=== PATIENT | male | born 1975 | race Caucasian/White ===

== ENCOUNTER 2021-02-15 18:53 | Emergency (ER) | payer SELFPAY ==
[~2021-02-15] VITALS: Ht 175.3 cm; Wt 109.1 kg
[2021-02-15 19:45] VITALS: BP 110/77
[2021-02-15] MEDS ORDERED: HYDR-2769 PO (21:55)
--- NOTE | 2021-02-15 21:57 | PHYS DOC ---
Past Medical History Additional Past Medical Histor: BILAT CARPAL TUNNEL (BIANCA HODGE APRN) Past Surgical History: No Surgical History (BIANCA HODGE APRN) General Adult EDM: Chief Complaint: UPPER EXTREMITY PAIN HPI: HPI: Patient is a 45 year old male who presents to the ED today complaining of 9 out of 10 bilateral wrist pain from chronic carpal tunnel syndrome. Patient states pain got worse today. Denies any injuries. Describes the pain as dull and radiating to bilateral upper extremities. He states he has tried taking gabapentin, Tylenol and Aleve with no relief. Denies anything exacerbating the pain. He states is from [place] and he is here for work. (BIANCA HODGE APRN) Review of Systems: Review of Systems: Constitutional: Denies fever or chills. [] Musculoskeletal: Reports bilateral wrist pain Integument: Denies rash. [] Neurologic: Denies headache, focal weakness or sensory changes. [] Psychiatric: Denies depression or anxiety. [] (BIANCA HODGE APRN) Heart Score: C/O Chest Pain: N/A Risk Factors: Risk Factors: DM, Current or recent (<one month) smoker, HTN, HLP, family history of CAD, obesity. Risk Scores: Score 0 - 3: 2.5% MACE over next 6 weeks - Discharge Home Score 4 - 6: 20.3% MACE over next 6 weeks - Admit for Clinical Observation Score 7 - 10: 72.7% MACE over next 6 weeks - Early Invasive Strategies (BIANCA HODGE APRN) Allergies: Allergies: Allergies Coded Allergies Type Severity Reaction Last Updated Verified amoxicillin Allergy Unknown 02/15/21 Yes tramadol Allergy Unknown 02/15/21 Yes (BIANCA HODGE SPONSORSHIP COORDINATOR) Physical Exam: PE: Constitutional: Well developed, well nourished, no acute distress, non-toxic appearance. [] Skin: Warm, dry, no erythema, no rash. [] Back: No tenderness, no CVA tenderness. [] Extremities: Shaking bilateral wrist almost nonstop, no tenderness, no cyanosis, no clubbing, ROM intact, no edema. [] Neurologic: Alert and oriented X 3, normal motor function, normal sensory function, no focal deficits noted. [] Psychologic: Affect normal, judgement normal, mood normal. [] (BIANCA HODGE SPONSORSHIP COORDINATOR) Current Patient Data: Vital Signs: Vital Signs Date Time Temp Pulse Resp B/P (MAP) Pulse Ox O2 Delivery O2 Flow Rate FiO2 02/15/21 19:45 98.1 78 16 110/77 96 Room Air 98.1 (AYESHABIANCA León APRN) EKG: EKG: [] (BIANCA HODGE APRN) Radiology/Procedures: Radiology/Procedures: [] (BIANCA HODGE APRN) Course & Med Decision Making: Course & Med Decision Making Pertinent Labs and Imaging studies reviewed. (See chart for details) This is a 45-year-old male patient presented to the ED today complaining of pain from carpal tunnel syndrome. He is from [place] and is here for work for 14 more days. Given prescription for hydrocodone. He is already on NSAID and gabapentin. (BIANCA HODGE APRN) Course & Med Decision Making Patients Care and treatment plan provided by ER Nurse Practitioner. I was available for consult. Patient's chart reviewed. (RUDY BUENO DO) Blanca Disclaimer: Blanca Disclaimer: This electronic medical record was generated, in whole or in part, using a voice recognition dictation system. (BIANCA HODGE APRN) Departure Departure Impression: Primary Impression: Carpal tunnel syndrome of left wrist Additional Impression: Carpal tunnel syndrome during Disposition: 01 HOME / SELF CARE / HOMELESS Condition: STABLE Referrals: NO PCP (PCP) ART GARCIA MD follow up with your doctor as soon as you can Patient Instructions: Carpal Tunnel Syndrome Additional Instructions: Please ensure you follow-up with your own doctor as soon as you can. Try to wear your wrist braces as well. Try to ice and elevate the affected extremities. Scripts Hydrocodone Bit/Acetaminophen (HYDROCODONE-APAP 10-325 ) 1 Tab Tablet 1 TAB PO DAILY PRN for PAIN, #14 TAB 0 Refills Prov: CHUNGDeniseBIANCA APRN 02/15/21 BIANCA HODGE APRN Feb 15, 2021 21:57 RUDY BUENO DO Feb 16, 2021 18:30
== END 2021-02-15 21:55 | disposition home or self-care (01) ==
LOC: ER 18:53
DX: G56.02 Carpal tunnel syndrome, left upper limb (principal); Z88.1 Allergy status to other antibiotic agents; Z88.6 Allergy status to analgesic agent
CPT/HCPCS: 99283